=== PATIENT | male | born 2000 | race Caucasian/White ===

== ENCOUNTER 2023-09-02 23:53 | Emergency (ER) | payer BC ==
[2023-09-02 23:59] VITALS: TEMP 98
[2023-09-03] MEDS: PANTOPRAZOLE 40 MG/10 ML VIAL IVP STA (00:17)
[2023-09-03] MEDS: KETOROLAC 15 MG/ML 1 ML VIAL IVP STA (00:17)
[2023-09-03] MEDS: ONDANSETRON 4 MG/2 ML VIAL IVP STA (00:17)
[2023-09-03] MEDS: MORPHINE SULFATE 4 MG/ML SYRINGE IVP STA (00:18)
[2023-09-03] MEDS: SODIUM CHLORIDE 0.9% 1,000 ML IV STA (00:18)
[2023-09-03 00:58] LABS: Basophils # (A) 0.1 k/uL (0-0.2); Basophils % (A) 1 %; Eosinophils # (A) 0.1 k/uL (0-0.7); Eosinophils % (A) 1 %; HCT 44.2 % (39.0-53.0); HGB 14.4 gm/dL (13.0-17.5); Lymphocytes # (A) 1.2 k/uL (1.0-4.8); Lymphocytes % (A) 12 %; MCH 28.7 pg (25.0-35.0); MCHC 32.6 g/dL (31.0-37.0); MCV 87.8 fL (80.0-100.0); Mean Platelet Volume 8.3; Monocytes # (A) 0.5 k/uL (0-1.0); Monocytes % (A) 5 %; Neutrophils # (A) 8.2 k/uL (1.3-7.7); Neutrophils % (A) 80 %; Platelet Count 200 k/uL (150-450); RBC 5.04 m/uL (4.30-5.90); RDW 13.1 % (11.5-15.5); WBC 10.2 k/uL (3.8-10.6)
[2023-09-03 01:18] LABS: ALT 46 U/L (4-49); AST 27 U/L (17-59); African American GFR (CKD) >90 (>60 ml/min/1.73 sqM); Albumin 4.8 g/dL (3.5-5.0); Alkaline Phosphatase 95 U/L (38-126); Amylase 53 U/L (30-110); Anion Gap 11 mmol/L; Blood Urea Nitrogen 12 mg/dL (9-20); Calcium 9.8 mg/dL (8.4-10.2); Carbon Dioxide 25 mmol/L (22-30); Chloride 104 mmol/L (98-107); Glucose 112 mg/dL (74-99); Lipase 55 U/L (23-300); Non-African American GFR(CKD) >90 (>60 ml/min/1.73 sqM); Potassium 3.8 mmol/L (3.5-5.1); Sodium 140 mmol/L (137-145); Total Bilirubin 0.8 mg/dL (0.2-1.3); Total Protein 7.5 g/dL (6.3-8.2)
[2023-09-03 02:07] LABS: Appearance,Urine Clear (Clear); Bilirubin,Urine Negative (Negative); Blood,Urine Moderate (Negative); Calcium Oxalate Crystals,Urine Rare /hpf; Color,Urine Colorless; Glucose,Urine (UA) Negative (Negative); Hyaline Casts,Urine 11 /lpf (0-2); Ketones,Urine Negative (Negative); Leukocyte Esterase,Urine Negative (Negative); Mucus,Urine Few /hpf; Nitrite,Urine Negative (Negative); PH, Urine 6.5 (5.0-8.0); Protein,Urine Negative (Negative); RBC,Urine 12 /hpf (0-5); Squamous Epithelial Cell,Urine <1 /hpf (0-4); Urobilinogen,Urine <2.0 mg/dL (<2.0); WBC,Urine 2 /hpf (0-5)
[2023-09-03 02:22] VITALS: BP 109/73; PULSE 84; RESP 16
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
--- NOTE | 2023-09-03 07:24 | CT ---
EXAMINATION TYPE: CT abdomen pelvis wo con DATE OF EXAM: 09/03/2023 HISTORY: pt c/o abd pain with nausea and vomiting x 2 hours, eval kidney stone. CT DLP: 919.8 mGycm. Automated Exposure Control for Dose Reduction was Utilized. TECHNIQUE: CT scan of the abdomen and pelvis is performed without oral or IV contrast. COMPARISON: NONE FINDINGS: Within the limitations of a non-contrast study, the following observations are made. LUNG BASES: Small degree of playing shaped left-sided gynecomastia is noted axial image 4. LIVER/GB: No significant abnormality is appreciated. PANCREAS: No significant abnormality is seen. SPLEEN: No significant abnormality is seen. ADRENALS: No significant abnormality is seen. KIDNEYS: No renal cortical calculi seen bilaterally. No right-sided hydronephrosis. Punctate 1 mm delilah culus distal left ureter axial image 131 causing asymmetric mild left-sided hydronephrosis. BOWEL: Appendix within normal limits from base of cecum. GENITAL ORGANS: No gross abnormality seen. LYMPH NODES: No greater than 1cm abdominal or pelvic lymph nodes are appreciated. OSSEOUS STRUCTURES: No significant abnormality is seen. OTHER: Tiny fat-containing umbilical hernia is present sagittal image 70. IMPRESSION: There is 1 mm calculus in distal left ureter causing asymmetric mild left-sided hydroneph rosis.
== END 2023-09-03 04:10 | disposition home or self-care (01) ==
LOC: EC 23:53
DX: N13.2 Hydronephrosis with renal and ureteral calculous obstruction (principal)
CPT/HCPCS: 36415; 80053; 82150; 83690; 85025; 81001; 74176; 99284; 96374; 96375 ×3; 96361 ×2; J2270; J2405; J1885; C9113